=== PATIENT | female | born 1970 | race Caucasian/White ===

== ENCOUNTER → 2020-12-18 | Day surgery (SDC) | payer OTHER ==
[~2020-12-18] VITALS: Ht 167.6 cm; Wt 152.0 kg
[~2020-12-18] MED LIST: FERR325T6 PO; HYDR200T80 PO; INSHUMSS SUBCUT; LACTATED RINGERS 1,000 ML IV SCH; LOSA50TA41 PO; PRED5TAB PO; PROT40 PO
[2020-12-18 10:18] LABS: CHLORIDE 111 mEq/L (98-107)
[2020-12-18 10:21] LABS: INR 1.1; PARTIAL THROMBOPLASTIN TIME 25.9 sec (23.4-31.0); PROTHROMBIN TIME 12.1 sec (9.6-11.0)
[2020-12-18 10:27] LABS: BASOPHILS % 0.4 % (0.0-2.0); EOSINOPHILS % 2.1 % (0.0-5.0); HEMATOCRIT. 30.7 % (36.0-48.0); HEMOGLOBIN. 10.6 g/dL (12.0-16.0); LYMPHOCYTES % 33.4 % (20.0-50.0); MEAN CORPUSCULAR HEMOGLOBIN 28.1 pg (28.0-32.0); MEAN CORPUSCULAR VOLUME 81.6 fL (81.0-99.0); MEAN PLATELET VOLUME 9.4 fl (7.4-10.4); MONOCYTES % 8.6 % (2.0-8.0); NEUTROPHILS % 55.5 % (40.0-76.0); RED BLOOD CELL COUNT 3.77 mill/uL (4.2-5.4); RED CELL DISTRIBUTION WIDTH 20.4 % (11.6-14.6)
[2020-12-18 10:28] LABS: PLATELET 36 x1000/uL (130-400)
[2020-12-18 11:44] LABS: PLATELET ESTIMATE MARKEDLY DECREASED
== END | disposition home or self-care (01) ==
LOC: OR 09:04
PROVIDERS: ATTEND Internal Medicine Gastroenterology
DX: I85.01 Esophageal varices with bleeding (principal); Z53.8 Procedure and treatment not carried out for other reasons; K74.60 Unspecified cirrhosis of liver; E11.9 Type 2 diabetes mellitus without complications; E66.9 Obesity, unspecified; Z79.4 Long term (current) use of insulin; Z79.899 Other long term (current) drug therapy; Z98.890 Other specified postprocedural states
CPT/HCPCS: 36415; 80048; 82962; 85025; 86850; 86900; 93005